=== PATIENT | male | born 1985 | race African-American/Black ===

== ENCOUNTER 2025-05-27 21:50 | Emergency (ER) | payer OTHER, SELFPAY ==
[2025-05-27 21:54] VITALS: BP 159/97
[2025-05-27 22:15] LABS: Hematocrit 42.7 % (39.0-52.0); Hemoglobin 14.9 g/dL (13.0-18.0); Mean Corp Hgb Conc. 34.9 g/dL (33.0-37.0); Mean Corpuscular Volume 83.4 fL (80.0-94.0); Nucleated Red Blood Cells % 0 % (-); Platelet Count 314 10^3/uL (130-400); Red Cell Dist. Width 12.7 % (11.5-14.5)
[2025-05-27 22:29] LABS: ALT (SGPT) 39 U/L (0-50); AST (SGOT) 33 U/L (17-59); Albumin 4.5 g/dl (3.5-5.0); Alkaline Phosphatase 69 U/L (38-126); Blood Urea Nitrogen 15 mg/dl (9-20); Calcium 9.6 mg/dl (8.4-10.2); Carbon Dioxide 23 mmol/L (22-30); Chloride 108 mmol/L (98-107); Glucose 136 mg/dl (70-99); Potassium 3.9 mmol/L (3.5-5.1); Sodium 139 mmol/L (135-145); Total Protein 7.8 g/dl (6.3-8.2); eGFR > 60.00
[2025-05-27 22:37] LABS: Troponin I < 0.012 ng/ml
[2025-05-27 23:00] VITALS: BP 145/89; BMI 40.5
--- NOTE | 2025-05-27 23:49 | ED.GENMED ---
History of Present Illness
General
Chief Complaint: Chest Pain
Source: patient
Time Seen by Provider: 05/27/25 23:31
History of Present Illness
History of Present Illness:
39-year-old male presents to the emergency room complaining of chest and abdominal pain. Patient states that he initially began having discomfort 3 days ago. 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
chest. It was worse when he was laying on it. Pain has improved but now seems to have migrated down to his abdomen. He feels somewhat bloated. No fever or chills. He is nauseous but has been tolerating oral intake. Movement seems to make the
pain worse. Denies any fever or chills. He has had an appendectomy in the past. No home treatments. He denies alcohol, smoking or drug use.
Phy Exam
Physical Exam
Physical Exam:
General: Awake, Alert, Oriented X3. No acute distress.
Vitals: unremarkable
Head: Atraumatic
Eyes: Pupils equal, EOMI
Throat: Airway intact, no exudates
Neck: Trachea midline
Lungs: Clear and equal b/l
Heart: Regular rate, no murmurs
Abd: Soft, tenderness to palpation upper abdomen, no rebound no pulsatile mass
Neuro: Nonfocal
Skin: Warm, dry, no rash
Extremities: pulses equal b/l, no edema
Scores
Heart Score for Chest Pain Patients
STEMI patient?: No
History: Slightly or Non-Suspicious
ECG: Normal
Age: </= 45 years
Risk Factors: No Risk Factors
Troponin: </= Normal Limit
Heart Score for Chest Pain Patients: 0
Heart Score Risk: 2.5% MACE over next 6 weeks
Course
Orders/Labs/Results
Orders:
Orders
05/27/25 21:52
Electrocardiogram (*1) Urgent
Reason for Study: Chest Pain
Cardiac Monitoring- Treatment ONCE
EKG- Treatment ONCE
IV Insert/Care/Rem.- Treatment PRN
O2 Therapy [RESP] Urgent
Titrate/Wean O2 to maintain O2 sat greater than (%): 90
Special Instructions: Maintain sats >/=90%
Pulse Ox/spot Check [RESP] Urgent
Quantity: 1
Special Instructions: ON ROOM AIR
05/27/25 22:06
Complete Blood Count/With Diff Urgent
Comprehensive Metabolic Panel Urgent
Lipase Urgent
Comment: ADDED
Troponin I Urgent
05/27/25 23:46
Ketorolac [Toradol] 15 mg IV NOW STA
05/27/25 23:51
Troponin I Urgent
05/27/25 23:52
Mag Hydrox/Al Hydrox/Simeth [Maalox] 30 ml Phenobarb/Hyoscy/Atropine/Scop [] 10 ml Viscous Lidocaine 2% [Xylocaine Viscous Cup] 10 ml PO NOW
05/28/25 00:00
US Abdomen Complete/Upper Urgent
Reason For Exam: upper abd pain, nausea
05/28/25 00:03
Mag Hydrox/Al Hydrox/Simeth [Maalox] 30 ml .ROUTE .STK-MED ONE
Phenobarb/Hyoscy/Atropine/Scop [] 10 ml .ROUTE .STK-MED ONE
Viscous Lidocaine 2% [Xylocaine Viscous Cup] 15 ml .ROUTE .STK-MED ONE
05/28/25 01:50
CT Abd/Pel (IV only)-DH only Urgent
Comment:
Reason For Exam: abdominal pain
05/28/25 02:27
HYDROmorphone [Dilaudid] 0.5 mg IV NOW STA
05/28/25 03:24
Add On- LAB Urgent
Comments:: blood in lab
Tests Added?: Lipase
Abnormal Lab Results
05/27/25
22:06
Absolute Lymphs (auto) 3.6 H 10^3/uL
(1.2-3.4)
Neutrophils % 40.8 L %
(42.2-75.2)
Chloride 108 H mmol/L
(98-107)
Glucose 136 H mg/dl
(70-99)
05/27/25 22:06
05/27/25 22:06
Vital Signs
Initial and Last Documented VS:
Initial Vital Signs
Temp Pulse Resp BP Pulse Ox
98.3 F 62 18 159/97 97
05/27/25 21:54 05/27/25 21:54 05/27/25 21:54 05/27/25 21:54 05/27/25 21:54
Last Documented Vital Signs
Temp Pulse Resp BP Pulse Ox
98.3 F 63 18 127/80 95
05/27/25 21:54 05/28/25 00:15 05/28/25 00:15 05/28/25 02:22 05/28/25 02:22
MDM/Problems Addressed
Differential Diagnosis Includes:
Angina, gastritis, cholecystitis
MDM/Problems Addressed:
Patient presents with pain that began in his chest and is now migrated to his abdomen. He has some tenderness on physical exam though no evidence of a surgical abdomen. Initially started with an ultrasound which showed no acute abnormalities. CT
obtained which again shows no acute intra-abdominal pathology. Patient feeling better ultimately with treatment. Stable for discharge home and follow-up with his primary as an outpatient.
*Radiology
Radiology exam reviewed: radiology read reviewed (Vision report)
*Pulse Oximetry
SaO2: 95
Oxygen Mode of Delivery: Room air
Patient hypoxic: no
*EKG
Interpreted by ED Provider?: Yes
Heart Rate: 64
Rate: normal
Rhythm: sinus
[place]: normal axis
Interval: normal interval
QRS Pattern: normal QRS
Ischemia: no ischemia
*Groundhand Interpretation
Rate: normal
Interpretation: normal
Rhythm: sinus
*Critical Care Note
Total Time (30-74mins, 75-104mins- exclusive of procedures): Not Applicable
ED Attending Note
-
Portions of this chart may have been created with voice recognition software.� Occasional wrong word or��sound alike� substitutions may have occurred due to the inherent limitations of voice recognition software.
Discharge Plan
Departure
Patient Disposition: Home (Routine Discharge)
Date of Disposition: 05/28/25
Time of Disposition: 03:29
Patient with high blood pressure during this ER visit?: No
Condition: Good
Discharge Problem:
Abdominal pain
Instructions: Abdominal Pain
Prescriptions:
New
dicyclomine 20 mg tablet
20 mg PO QID PRN (Reason: abdominal pain) Qty: 20 0RF
ibuprofen 600 mg tablet
600 mg PO Q6H PRN (Reason: Pain) Qty: 20 0RF
Referrals:
UNKNOWN - PT DOES,NOT KNOW [Family Provider]
Interventions
Interventions:
*Risk Screen - Suicide Last Done: 05/27/25 21:54
*General Assessment Last Done: 05/27/25 23:09
*Neglect/Abuse Screening Last Done: 05/27/25 21:54
*ED- Fall Risk Assessment Last Done: 05/27/25 23:09
*ED COVID-19 Vaccine History Last Done: 05/27/25 23:09
*Nursing Disposition Last Done: 05/28/25 03:50
ED- Cardiac Assessment Last Done: 05/27/25 23:09
Discharge Date and Time
Discharge Date/Time: 05/28/25 03:50
Print Language: [id number]
[2025-05-28] VITALS: BP 129/75
[2025-05-28] MEDS: MAALOX 50 PO (00:07)
[2025-05-28] MEDS: TORADOL 15 MG IV (00:10)
[2025-05-28 00:54] LABS: Troponin I 0.017 ng/ml
[2025-05-28 02:22] VITALS: BP 127/80
[2025-05-28 03:58] LABS: Lipase 131 U/L (23-300)
== END 2025-05-28 03:50 | disposition home or self-care (01) ==
LOC: EMR 21:50
PROVIDERS: Emergency Medicine; EMERGENCY PHYSICIAN Emergency Medicine
DX: R10.11 Right upper quadrant pain (principal); R07.9 Chest pain, unspecified; R11.0 Nausea; R14.0 Abdominal distension (gaseous)
CPT/HCPCS: 99285; 96374; 74177; 76700; 80053; 83690; 84484; 85025; 93005; Q9967